=== PATIENT | male | born 1965 | race American Indian/Alaskan Native ===

== ENCOUNTER 2017-10-27 21:18 | Emergency (ER) | payer OTHER ==
--- NOTE | 2017-10-27 22:08 | XRay Report ---
FINAL REPORT EXAM: XR KNEE 3V RT HISTORY: trauma, pain TECHNIQUE: Frontal, lateral, oblique views right knee Comparison: None FINDINGS: There is no evidence of fracture or subluxation. The joint spaces appear to be maintained. There is osteophyte formation at the tibiofemoral and patellofemoral joints. The soft tissues are unremarkable. IMPRESSION: 1. No evidence of fracture or subluxation. 2. Evidence of degenerative change. If further imaging is required, MRI may be helpful.
--- NOTE | 2017-10-28 00:49 | Emergency Department Report ---
ED Lower Extremity HPI - General Chief Complaint: Extremity Injury, Lower Stated Complaint: RT KNEE PAIN Time Seen by Provider: 10/28/17 00:28 Source: patient Mode of arrival: Wheelchair Limitations: No Limitations - History of Present Illness Initial Comments: 52-year-old male reports to the emergency room for concern of right posterior knee pain. Patient reports that earlier in the day he was playing tennis when he felt something pop. He went to try plan tennis again and with 10 seconds he was in excruciating pain and not able to bear weight comfortably. Patient then went to urgent care and was evaluated there and they recommended for him to follow up in emergency room for concerns of a possible PE. Patient does have unilateral leg swelling. Patient denies any calf pain denies any shortness of breath denies any chest pain reports that he is fairly healthy with a past medical history of hypertension and rheumatoid arthritis. As well as migraines. Patient is followed by primary care provider at [facility]. It was noted the patient has an elevated blood pressure 157/ 104 he reports that he takes Cardizem. -: This afternoon Injury: Knee: Right (posterior knee) Type of Injury: unknown Place: street/outdoors Severity: moderate Improves With: rest Worsens With: weight bearing Context: running Associated Symptoms: snap/pop sensation - Related Data Previous Rx's Medication Instructions Recorded Last Taken Type Ibuprofen [Motrin 600 MG tab] 600 mg PO Q8H PRN #30 tablet 10/28/17 Unknown Rx Allergies Allergy/AdvReac Type Severity Reaction Status Date / Time No Known Allergies Allergy Unverified 10/27/17 21:31 ED Review of Systems ROS: Stated complaint: RT KNEE PAIN Other details as noted in HPI Comment: All other systems reviewed and negative Musculoskeletal: myalgia, other (right lower leg swelling) ED Past Medical Hx - Past Medical History Hx Hypertension: Yes Hx Arthritis: Yes - Surgical History Past Surgical History?: No - Social History Smoking Status: Never Smoker Substance Use Type: None - Medications Home Medications: Home Medications Medication Instructions Recorded Confirmed Last Taken Type Ibuprofen [Motrin 600 MG tab] 600 mg PO Q8H PRN #30 tablet 10/28/17 Unknown Rx ED Physical Exam - General Limitations: No Limitations General appearance: alert, in no apparent distress - Head Head exam: Present: atraumatic, normocephalic - Eye Eye exam: Present: EOMI - ENT ENT exam: Present: mucous membranes moist - Respiratory Respiratory exam: Present: normal lung sounds bilaterally. Absent: respiratory distress - Cardiovascular Cardiovascular Exam: Present: regular rate, normal rhythm. Absent: systolic murmur, diastolic murmur, rubs, gallop - Expanded Lower Extremity Exam Right Upper Leg exam: Present: normal inspection, full ROM. Absent: tenderness, swelling Knee exam: Present: normal inspection, full ROM, full knee extension. Absent: tenderness, swelling Lower Leg exam: Present: full ROM, swelling. Absent: tenderness, ecchymosis, crepidus, erythema, palpable cord, Hodan's sign Ankle exam: Present: normal inspection, full ROM. Absent: tenderness, swelling Neuro vascular tendon exam: Present: no vascular compromise. Absent: abnormal cap refill - Neurological Exam Neurological exam: Present: alert, oriented X3 - Psychiatric Psychiatric exam: Present: normal affect, normal mood - Skin Skin exam: Present: warm, dry, intact, normal color. Absent: rash ED Course Vital Signs 10/27/17 10/28/17 21:25 00:54 Temperature 98.1 F Pulse Rate 83 78 Respiratory 16 18 Rate Blood Pressure 157/104 Blood Pressure 158/98 [Right] O2 Sat by Pulse 98 99 Oximetry ED Lower Extremity MDM - Lab Data Result diagrams: 10/28/17 01:12 10/28/17 01:12 - Radiology Data Radiology results: report reviewed, image reviewed FINAL REPORT EXAM: XR KNEE 3V RT HISTORY: trauma, pain TECHNIQUE: Frontal, lateral, oblique views right knee Comparison: None FINDINGS: There is no evidence of fracture or subluxation. The joint spaces appear to be maintained. There is osteophyte formation at the tibiofemoral and patellofemoral joints. The soft tissues are unremarkable. IMPRESSION: 1. No evidence of fracture or subluxation. 2. Evidence of degenerative change. If further imaging is required, MRI may be helpful. Transcribed By: ED Dictated By: ANGELINA COTE MD Electronically Authenticated By: ANGELINA COTE MD Signed Date/Time: 10/27/17 9449 - Medical Decision Making Patient has been evaluated by this provider fast track. X-ray of knee ordered shows no fractures or subluxation noted dislocation. Shows some mild degenerative changes. They recommended symptoms persist for MRI. D-dimer ordered last in 135 CBC BMP within normal limits. Will refer patient to orthopedist as well as a primary care provider. Patient verbalized understanding. Critical care attestation.: If time is entered above; I have spent that time in minutes in the direct care of this critically ill patient, excluding procedure time. ED Disposition Clinical Impression: Posterior right knee pain, Swelling of right lower extremity Disposition: TO HOME OR SELFCARE Is pt being admited?: No Does the pt Need Aspirin: No Condition: Stable Prescriptions: Ibuprofen [Motrin 600 MG tab] 600 mg PO Q8H PRN #30 tablet PRN Reason: Pain Referrals: PRIMARY CARE, [Primary Care Provider] - 3-5 Days ANI WREN MD [Staff Physician] - 3-5 Days MARQUIS MARTINEZ MD [Staff Physician] - 3-5 Days ART BULLOCK JR, MD [Staff Physician] - 3-5 Days JOSE BRUNNER MD [Staff Physician] - 3-5 Days
[2017-10-28 00:54] VITALS: BP 158/98
[2017-10-28 01:20] LABS: Basophils # (Auto) 0.1 K/mm3 (0.0-0.1); Eosinophils # (Auto) 0.2 K/mm3 (0.0-0.4); Eosinophils % (Auto) 3.3 % (0.0-4.3); Hematocrit 40.6 % (35.5-45.6); Hemoglobin 13.6 gm/dl (11.8-15.2); Lymphocytes # (Auto) 2.5 K/mm3 (1.2-5.4); Lymphocytes % (Auto) 38.9 % (13.4-35.0); Mean Corpuscular HGB Conc 33 % (32-34); Mean Corpuscular Hemoglobin 30 pg (28-32); Mean Corpuscular Volume 90 fl (84-94); Monocytes # (Auto) 0.6 K/mm3 (0.0-0.8); Monocytes % (Auto) 9.5 % (0.0-7.3); Platelet Count 308 K/mm3 (140-440); Red Blood Count 4.49 M/mm3 (3.65-5.03); Red Cell Distribution Width 12.8 % (13.2-15.2)
[2017-10-28 01:39] LABS: Alanine Aminotransferase 20 units/L (7-56); Albumin 4.2 g/dL (3.9-5); BUN/Creatinine Ratio 14; Blood Urea Nitrogen 15 mg/dL (9-20); Calcium 9.3 mg/dL (8.4-10.2); Hemolysis Index 2
== END 2017-10-28 02:29 | disposition home or self-care (01) ==
LOC: ED 21:18
DX: M25.561 Pain in right knee (principal); I10 Essential (primary) hypertension; M06.9 Rheumatoid arthritis, unspecified; G43.909 Migraine, unspecified, not intractable, without status migrainosus
CPT/HCPCS: 36415; 80053; 85025; 85379